=== PATIENT | female | born 1980 | race Caucasian/White ===

== ENCOUNTER → 2016-09-18 | Outpatient (CLI) | payer MEDICAID ==
--- NOTE | 2016-09-18 11:45 | US ---
Complete Abdominal Ultrasound CLINICAL HISTORY: 36-year-old female with elevated liver function tests. The patient had a prior chol ecystectomy 17 years ago. ICD 10 Diagnostic Code: R79.89. TECHNIQUE: A curvilinear 5 MHz transducer was used to sonographically evaluate the upper abdomen. Col or Doppler was used. The web administrator indicated the exam was technically limited secondary to the nicolle ent's body habitus. COMPARISON STUDY: None available. FINDINGS: The pancreatic contour is normal, with the caveat that the pancreatic tail is partially obs cured by overlying bowel gas. The abdominal aorta is normal in size, and tapers normally. The visuali zed IVC is normal in caliber. The hepatic vein trifurcation is normal. The main portal vein is patent , and hepatopetal in flow direction. The liver is enlarged, measuring 21.4 cm along the right midaxil wilian line, and is diffusely echogenic, consistent with fatty infiltration (steatosis). There is no fo meron hepatic mass. There is no intrahepatic bile duct dilatation. The CBD is mildly enlarged given the patient's age, measuring 7.2 mm; however, within the context of a prior cholecystectomy, this likely represents a "reservoir" type effect. Nonetheless, correlation with limited levels is suggested. The re is no choledocholithiasis. The right and the left kidneys are normal in size, shape, and contour, with a normal renal cortical thickness, and no hydronephrosis. The right kidney measures 11.8 x 5.2 x 4.7 cm (and contains a 5 x 5 x 7 mm cyst in the upper pole; there is also an adjacent echogenic 4 x 2 x 4 mm punctate focus with "twinkle artifact," suggestive of a tiny nonobstructive stone). The lef t kidney measures 12.3 x 4.6 x 5.8 cm. The spleen is normal in size and homogeneous in echotexture, m easuring 10.9 x 11.0 x 3.4 cm. There is no ascites or pleural effusion. IMPRESSION: 1. Hepatomegaly, with diffuse steatosis. 2. Status post cholecystectomy with probable "reservoir" type dilatation of the common bile duct; how ever, correlation with bilirubin level is suggested. 3. Nonobstructive single punctate right nephrolithiasis, and evidence of an upper pole 7 mm right jose luis al cortical cyst.
== END ==
LOC: FIMAGING 10:26
PROVIDERS: ATTEND Family Medicine
DX: R16.0 Hepatomegaly, not elsewhere classified (principal); K76.0 Fatty (change of) liver, not elsewhere classified; N20.0 Calculus of kidney; N28.1 Cyst of kidney, acquired; Z90.49 Acquired absence of other specified parts of digestive tract

== ENCOUNTER → 2018-10-19 | Outpatient (CLI) | payer MEDICAID | LOC: FCPNEURO 23:54 | PROVIDERS: ATTEND Psychiatry & Neurology Sleep Medicine | DX: G47.33 Obstructive sleep apnea (adult) (pediatric) (principal) ==